=== PATIENT | female | born 1985 | race Caucasian/White ===

== ENCOUNTER 2017-09-02 20:29 | Emergency (ER) | payer OTHER ==
[2017-09-02] MEDS: ONDANSETRON 4 MG INJ IV ×2 (22:18→22:31)
[2017-09-02] MEDS: SOD CHLORIDE 0.9% 1,000 ML IV (22:19)
[2017-09-02 22:28] LABS: ADD MAN DIFF? NO
[2017-09-02] MEDS: HYDROmorphONE 0.5 MG/0.5 ML SYG IV (22:32)
[2017-09-02 22:34] LABS: BASOPHILS % 0.2 % (0.0-2.0); EOSINOPHILS % 0.2 % (0.0-7.0); HEMATOCRIT 42.6 % (37.0-47.0); HEMOGLOBIN 13.8 g/dl (12.0-16.0); LYMPHOCYTES # 1.2 10^3/ul (0.8-2.9); LYMPHOCYTES % 9.6 % (15.0-51.0); MEAN CORPUSCULAR HEMOGLOBIN 29.1 pg (29.0-33.0); MEAN CORPUSCULAR HGB CONC 32.4 g/dl (32.0-37.0); MEAN CORPUSCULAR VOLUME 89.9 fl (82.0-101.0); MEAN PLATELET VOLUME 9.6 fl (7.4-10.4); MONOCYTE # 0.5 10^3/ul (0.3-0.9); MONOCYTES % 4.3 % (0.0-11.0); NEUTROPHIL # 10.4 10^3/ul (1.6-7.5); NEUTROPHILS % 85.2 % (39.0-77.0); PLATELET COUNT 441 10^3/UL (140-415); RED BLOOD COUNT 4.74 10^6/ul (4.20-5.40); RED CELL DISTRIBUTION WIDTH 13.9 % (11.5-14.5)
[2017-09-02 22:34] LABS: WHITE BLOOD COUNT 12.2 10^3/ul (4.8-10.8)
[2017-09-02 23:01] LABS: ALANINE AMINOTRANSFERASE 101 IU/L (13-69); ALBUMIN 4.5 g/dl (3.3-4.9); ALBUMIN/GLOBULIN RATIO 1.21; ALKALINE PHOSPHATASE 118 IU/L (42-121); ANION GAP 21 (8-16); ASPARTATE AMINO TRANSFERASE 40 IU/L (15-46); BILIRUBIN,INDIRECT 0.2 mg/dl (0-1.1); BILIRUBIN,TOTAL 0.2 mg/dl (0.2-1.3); BLOOD UREA NITROGEN 11 mg/dl (7-20); CALCIUM 10.3 mg/dl (8.4-10.2); CARBON DIOXIDE 26 mmol/L (21-31); CHLORIDE 101 mmol/L (97-110); CREATININE 0.62 mg/dl (0.44-1.00); GLUCOSE 133 mg/dl (70-220); LIPASE 71 U/L (23-300); SODIUM 144 mmol/L (135-144); TOTAL PROTEIN 8.2 g/dl (6.1-8.1)
[2017-09-03] MEDS: DIPHENHYDRAMINE 50 MG INJ IV (00:08)
[2017-09-03] MEDS: METOCLOPRAMIDE 10 MG INJ IV (00:08)
[2017-09-03] MEDS: SOD CHLORIDE 0.9% 1,000 ML IV (00:08)
[2017-09-03] MEDS: SOD CHLORIDE 0.9% 100 ML (00:15)
[2017-09-03] MEDS: IOHEXOL 300MG/ML 150 ML BTL (00:15)
== END 2017-09-03 05:07 | disposition home or self-care (01) ==
LOC: E/R 09-03 05:07
DX: R10.13 Epigastric pain (principal); R11.2 Nausea with vomiting, unspecified; D72.829 Elevated white blood cell count, unspecified; D47.3 Essential (hemorrhagic) thrombocythemia; J45.909 Unspecified asthma, uncomplicated; Z91.010 Allergy to peanuts
CPT/HCPCS: 36415; 74177; 80053; 83690; 85025; 96374; 96375; 99285-25

== ENCOUNTER → 2017-10-18 | Outpatient (CLI) | payer OTHER | END | disposition home or self-care (01) | LOC: HKI 14:14 | DX: Z09 Encounter for follow-up examination after completed treatment for conditions other than malignant neoplasm (principal); M25.562 Pain in left knee | CPT/HCPCS: 73502 ==

== ENCOUNTER 2017-10-19 15:25 | Day surgery (SDC) | payer OTHER ==
[2017-10-19] MEDS: POLYMYXIN/BACITRACIN 1L IRRIG IRR
[2017-10-19] MEDS: LACTATED RINGER'S 1,000 ML (ENTER RATE) IV* (15:30)
[2017-10-19] MEDS ORDERED: POLYMYXIN/BACITRACIN 1L IRRIG (17:18)
[2017-10-19] MEDS ORDERED: hydrALAzine 20 MG INJ IV (18:00)
[2017-10-19] MEDS ORDERED: LABETALOL HCL 20MG INJ IV (18:00)
[2017-10-19] MEDS ORDERED: EPHEDrine SULFATE 50 MG/5 ML SYG IV (18:00)
[2017-10-19] MEDS ORDERED: PROCHLORPERAZINE 10 MG INJ IV (18:00)
[2017-10-19] MEDS ORDERED: ONDANSETRON 4 MG INJ IV (18:00)
[2017-10-19] MEDS ORDERED: FENTAnyl 50 MCG/ML VIAL IV ×3 (18:00)
[2017-10-19] MEDS ORDERED: HYDROmorphONE (0.2 MG/ML) 10ML SYG IV ×2 (18:00)
[2017-10-19] MEDS ORDERED: OXYCODONE/ACETAMINOPHEN (5/325) TAB PO (18:00)
[2017-10-19] MEDS ORDERED: FENTAnyl 50 MCG/ML VIAL (18:03)
[2017-10-19] MEDS ORDERED: PROPOFOL 20 ML (18:03)
[2017-10-19] MEDS ORDERED: LIDOCAINE 2% (SDV) 5 ML INJ (18:03)
[2017-10-19] MEDS ORDERED: MIDAZOLAM 1 MG/ML 2 ML INJ (18:03)
[2017-10-19] MEDS ORDERED: ROPIVACAINE 0.5 % 30 ML VIAL (18:05)
[2017-10-19] MEDS ORDERED: CEFAZOLIN 1 GM INJ (18:36)
[2017-10-19] MEDS: CEFAZOLIN 2 GM/50 ML (PMX) 50 ML IVPB (18:38)
[2017-10-19] MEDS ORDERED: ONDANSETRON 4 MG INJ (18:39)
[2017-10-19] MEDS ORDERED: DEXAMETHASONE 4 MG/ML 1 ML INJ (18:39)
[2017-10-19] MEDS ORDERED: FAMOTIDINE 20 MG INJ (18:39)
[2017-10-19] MEDS ORDERED: MIDAZOLAM 1 MG/ML 2 ML INJ IV (20:00)
[2017-10-19] MEDS ORDERED: KETOROLAC 30 MG INJ (20:01)
[2017-10-19] MEDS: HYDROmorphONE (0.2 MG/ML) 10ML SYG IV (20:07)
[2017-10-19] MEDS: MEPERIDINE 25 MG INJ IV (20:08)
[2017-10-19] MEDS: KETOROLAC 30 MG INJ IV (20:08)
[2017-10-19] MEDS: DIPHENHYDRAMINE 50 MG INJ IV (20:55)
== END 2017-10-19 21:25 | disposition home or self-care (01) ==
LOC: SDS 15:25
DX: T84.84XA Pain due to internal orthopedic prosthetic devices, implants and grafts, initial encounter (principal); Y79.3 Surgical instruments, materials and orthopedic devices (including sutures) associated with adverse incidents; G56.01 Carpal tunnel syndrome, right upper limb
CPT/HCPCS: 20680; 73110-RT; 84703

== ENCOUNTER 2018-01-30 09:04 | Emergency (ER) | payer OTHER ==
[2018-01-30] MEDS: DIPHENHYDRAMINE 25 MG CAP PO (10:05)
== END 2018-01-30 10:39 | disposition left against medical advice (07) ==
LOC: FTE 09:04
DX: L29.9 Pruritus, unspecified (principal); Z76.0 Encounter for issue of repeat prescription
CPT/HCPCS: 99283; Z7502

== ENCOUNTER → 2018-02-14 | Outpatient (CLI) | payer OTHER | END | disposition home or self-care (01) | LOC: HKI 13:52 | DX: M25.552 Pain in left hip (principal); S32.402D Unspecified fracture of left acetabulum, subsequent encounter for fracture with routine healing | CPT/HCPCS: 73502 ==

== ENCOUNTER 2019-01-29 19:45 | Emergency (ER) | payer OTHER ==
[2019-01-29] MEDS: OPHTHALMIC IRRIG SOLUTION 120 ML LEFT EYE (21:44)
[2019-01-29] MEDS: DEXAMETHASONE 4 MG TAB PO (23:14)
[2019-01-29] MEDS: DIPHENHYDRAMINE 25 MG CAP PO (23:14)
== END 2019-01-29 23:30 | disposition home or self-care (01) ==
LOC: FTE 19:45
DX: H10.32 Unspecified acute conjunctivitis, left eye (principal)
CPT/HCPCS: 99283; Z7502